=== PATIENT | male | born 1990 | race Hispanic/Latino ===

== ENCOUNTER 2020-05-05 11:14 | Emergency (ER) | payer SELFPAY ==
[~2020-05-05] VITALS: Ht 165.1 cm; Wt 100.0 kg
[2020-05-05 12:05] LABS: HEMATOCRIT 45.1 % (39.0-50.0); HEMOGLOBIN 14.9 g/dl (14.0-18.0); IMMATURE GRANULOCYTES 0.3 % (0.0-5.0); MEAN CELL VOLUME 91.5 fL CALC (80.0-100.0); MEAN CORPUSCULAR HGB 30.2 pG CALC (26.0-32.0); NEUT# 5.86 thou/uL (1.82-7.42); RED BLOOD COUNT 4.93 mill/uL (4.70-6.10); RED CELL DISTRI WIDTH 12.6 % (11.5-15.5)
[2020-05-05 12:10] VITALS: BP 136/77
[2020-05-05 12:26] LABS: ANION GAP 11 (6-22 (CALC)); BUN 12 mg/dL (9-20); BUN/CREATININE RATIO 17 (12-20 (CALC)); CARBON DIOXIDE 27 mmol/l (22-30); CHLORIDE 106 mmol/l (95-108); CREATININE 0.7 mg/dL (0.7-1.3); GFR > 60 ML/MIN (>=60 (CALC)); GFR FOR AFR.AMER. > 60 ML/MIN (>=60 (CALC)); POTASSIUM 4.2 mmol/l (3.5-5.1); SODIUM 140 mmol/l (137-146)
== END 2020-05-05 13:40 | disposition home or self-care (01) | DRG 313 ==
LOC: ED 11:14
PROVIDERS: Family Medicine
DX: R07.9 Chest pain, unspecified (principal); R51.9 Headache, unspecified